=== PATIENT | male | born 2000 | race Caucasian/White ===

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

== ENCOUNTER 2022-09-06 16:26 | Emergency (ER) | payer OTHER ==
[~2022-09-06] VITALS: Ht 188 cm; Wt 84.1 kg
[~2022-09-06 16:26] MED LIST: CLEO300C2 PO
[2022-09-06 18:35] VITALS: BP 132/63
== END 2022-09-06 18:37 | disposition home or self-care (01) ==
LOC: M ED 16:26
DX: S06.0XAA Concussion with loss of consciousness status unknown, initial encounter (principal); W17.89XA Other fall from one level to another, initial encounter; F17.200 Nicotine dependence, unspecified, uncomplicated

== ENCOUNTER → 2023-11-14 | Outpatient (CLI) | payer OTHER ==
[2023-11-14 11:10] LABS: HEMATOCRIT 42.2 % (42.0-52.0); HEMOGLOBIN 15.1 g/dl (13.5-17.5); MEAN CORPUSCULAR HEMOGLOBIN 31.7 pg (27.0-33.0); MEAN CORPUSCULAR HGB CONC 35.8 g/dl (32.0-36.5); MEAN CORPUSCULAR VOLUME 88.5 fl (80.0-96.0); PLATELET COUNT, AUTOMATED 222 10^3/uL (150-450); RED BLOOD COUNT 4.77 10^6/uL (4.30-6.10)
[2023-11-14 11:39] LABS: ALBUMIN 4.2 G/DL (3.2-5.2); ALKALINE PHOSPHATASE 57 U/L (46-116); ALT/SGPT 16 U/L (7.0-40); AST/SGOT 12 U/L (<34); BILIRUBIN,TOTAL 0.3 MG/DL (0.3-1.2); BLOOD UREA NITROGEN 11 MG/DL (9-23); CALCIUM LEVEL 8.8 MG/DL (8.5-10.1); CARBON DIOXIDE LEVEL 27 MMOL/L (20-31); CHLORIDE LEVEL 109 MMOL/L (98-107); CHOLESTEROL LEVEL 170 MG/DL (<200); CHOLESTEROL RISK RATIO 3.21 (<5); CREATININE FOR GFR 0.73 MG/DL (0.70-1.30); GLOMERULAR FILTRATION RATE > 60.0 (>60); GLUCOSE, FASTING 91 MG/DL (60-100); HDL CHOLESTEROL 52.9 MG/DL (>40); IRON (FE) 72 UG/DL (65-175); LDL CHOLESTEROL 94.3 MG/DL (<100); NON-HDL-C 117.1 MG/DL; PERCENT SATURATION 23.5 % (19.7-50.0); POTASSIUM SERUM 4.5 MMOL/L (3.5-5.1); SODIUM LEVEL 141 MMOL/L (136-145); TOTAL IRON BINDING CAPACITY 306 UG/DL (250-425); TRIGLYCERIDES LEVEL 114 MG/DL (<150)
[2023-11-14 11:41] LABS: THYROID STIMULATING HORMONE 1.513 uIU/ML (0.55-4.78); THYROXINE (T4) 7.9 UG/DL (4.5-10.9); TOTAL 25(OH) VITAMIN D 18.1 NG/ML (20.0-100.0)
[2023-11-14 11:43] LABS: TOTAL T3 128.6 NG/DL (60.0-181.0)
== END ==
LOC: M LAB 10:22
PROVIDERS: ATTEND Family Medicine
DX: D64.9 Anemia, unspecified (principal)

== ENCOUNTER → 2024-07-12 | Outpatient (CLI) | payer OTHER, SELFPAY | LOC: M SLEEP HO 05-22 11:16 | PROVIDERS: ATTEND Physician Assistant | DX: G47.9 Sleep disorder, unspecified (principal); R06.83 Snoring ==